=== PATIENT | female | born 1985 | race Caucasian/White ===

== ENCOUNTER 2021-12-18 16:56 | Observation (INO) | payer OTHER ==
[~2021-12-18 16:56] MED LIST: Iopamidol 300 61% 100 ML VIAL FS ONE
[2021-12-18] MEDS ORDERED: Metoclopramide HCl 10 MG/2 ML VIAL ONE (17:28)
[2021-12-18] MEDS ORDERED: Famotidine/PF 20 mg/2ml Vial ONE (17:29)
[2021-12-18] MEDS ORDERED: Morphine 2 MG/ML VIAL ONE (17:30)
[2021-12-18] MEDS ORDERED: Morphine 4 MG/ML VIAL ONE ×2 (17:30→21:27)
[2021-12-18 17:54] LABS: #Eosinphils 0.2 10x3/uL (0.0-0.5); #Monocytes 0.6 10x3/uL (0.0-1.1); #Neutrophils 4.8 10x3/uL (1.5-8.4); %Basophils 0.3 % (0.0-2.0); %Eosinophils 2.5 % (0.0-6.0); %Lymphocytes 17.8 % (18.0-47.0); %Monocytes 8.5 % (0.0-10.0); %Neutrophils 69.4 % (40.0-75.0); Hemoglobin 10.6 g/dL (12.0-15.5); Mean Corpuscular HGB CONC 35.2 g/dL (32.0-36.0); Mean Corpuscular Hemoglobin 29.1 pg (27.0-33.0); Mean Corpuscular Volume 82.7 fl (81.6-98.3); Mean Platelet Volume 9.6 fl (7.4-10.4); Platelet Count 297 10x3/uL (150-450); RBC Distribution Width 11.9 % (11.5-14.5); Red Blood Cell (RBC) Count 3.64 10x6/uL (3.90-5.03); White Blood Cell (WBC) Count 6.9 10x3/uL (3.5-10.5)
[2021-12-18 18:10] LABS: ALT (SGPT) 167 U/L (8-55); AST (SGOT) 66 U/L (5-34); Albumin 4.1 g/dL (3.5-5.0); Alkaline Phosphatase 95 U/L (40-110); Anion Gap 11 mmol/L (10-20); BUN (Urea Nitrogen) 8 mg/dL (7.0-18.7); Bilirubin, Total 1.6 mg/dL (0.2-1.2); Calc. Creatinine Clearance 0 mL/min (70-130); Calcium 9.3 mg/dL (7.8-10.44); Carbon Dioxide 24 mmol/L (22-29); Chloride 104 mmol/L (98-107); Estimated GFR 106; Globulin 3.1 g/dL (2.4-3.5); Glucose 89 mg/dL (70-105); Lipase 40 U/L (8-78); Magnesium 1.7 mg/dL (1.6-2.6); Potassium 4.3 mmol/L (3.5-5.1); Protein, Total 7.2 g/dL (6.0-8.3); Sodium 135 mmol/L (136-145)
[2021-12-19 01:20] VITALS: BMI 43.2
[2021-12-19] MEDS ORDERED: Morphine 4 MG/ML VIAL SLOW IVP PRN (01:26)
[2021-12-19] MEDS ORDERED: Acetaminophen 325 MG TAB PO PRN (01:30)
[2021-12-19] MEDS ORDERED: Ondansetron PF 4 MG/2 ML Vial IVP PRN (01:30)
[2021-12-19] MEDS ORDERED: Ondansetron ODT 4 MG TAB SL PRN (01:30)
[2021-12-19] MEDS: Sodium Chloride 0.9% 1,000 ML IV SCH ×2 (01:48→13:44)
[2021-12-19] MEDS ORDERED: Piperacillin/Tazobactam 3.375 GM in Sodium Chloride 0.9% 100 ML IVPB SCH (02:00)
[2021-12-19 03:52] LABS: SARS-CoV-2 NAA Rapid Test Not Detected (NotDetected)
[2021-12-19] MEDS ORDERED: Bupivacaine 0.25% HCL 30 ML VIAL ONE (07:07)
[2021-12-19] MEDS ORDERED: EPINEPHrine 1 MG/ML AMP ONE (07:08)
[2021-12-19] MEDS ORDERED: Rocuronium Bromide 10 MG/ML (10ML VIAL) ONE (07:28)
[2021-12-19] MEDS ORDERED: Ondansetron PF 4 MG/2 ML Vial ONE ×3 (07:28→10:01)
[2021-12-19] MEDS ORDERED: PROPOFOL 20 ML ONE (07:28)
[2021-12-19] MEDS ORDERED: Lidocaine 1% PF 5 ML VIAL ONE (07:28)
[2021-12-19] MEDS ORDERED: Fentanyl 250 MCG/5 ML VIAL ONE (07:28)
[2021-12-19] MEDS ORDERED: Dexamethasone 4 mg/ml Vial ONE (07:28)
[2021-12-19] MEDS ORDERED: Midazolam HCl 2 mg/2 ml Vial ONE (08:08)
[2021-12-19] MEDS ORDERED: Metoclopramide HCl 10 MG/2 ML VIAL ONE (08:29)
[2021-12-19] MEDS ORDERED: SUGAMMADEX SODIUM 200 MG/2 ML VIAL ONE ×2 (09:21→09:47)
[2021-12-19] MEDS ORDERED: Fentanyl 100 MCG/2 ML VIAL ONE ×2 (09:30→10:25)
[2021-12-19] MEDS ORDERED: Ketorolac Tromethamine 30 MG/ML VIAL ONE (09:46)
[2021-12-19] MEDS ORDERED: Meperidine HCl/PF 25 MG/ML VIAL ONE (09:56)
[2021-12-19] MEDS ORDERED: Hydrocodone-Acetamin 15 ML UDCUP PO PRN ×2 (11:18→11:19)
[2021-12-19] MEDS: Hydrocodone-Acetamin 15 ML UDCUP PO PRN ×2 (12:57→18:01)
[2021-12-19] MEDS ORDERED: Morphine 2 MG/ML VIAL SLOW IVP PRN (14:52)
[2021-12-19] MEDS: Ondansetron PF 4 MG/2 ML Vial IVP PRN ×2 (14:59→20:30)
[2021-12-19] MEDS ORDERED: Ketorolac Tromethamine 30 MG/ML VIAL IVP SCH (16:00)
[2021-12-19] MEDS: Ketorolac Tromethamine 30 MG/ML VIAL IVP SCH ×2 (17:00→22:11)
[2021-12-19] MEDS ORDERED: Famotidine/PF 20 mg/2ml Vial IVPB SCH (18:15)
[2021-12-19] MEDS ORDERED: Famotidine/PF 20 mg/2ml Vial SLOW IVP SCH (18:30)
[2021-12-19] MEDS: Famotidine/PF 20 mg/2ml Vial SLOW IVP SCH (20:32)
[2021-12-19] MEDS: Morphine 4 MG/ML VIAL SLOW IVP PRN (20:39)
[2021-12-19] MEDS ORDERED: Lactated Ringer's 1,000 ML IV SCH (23:15)
[2021-12-20] MEDS: Ketorolac Tromethamine 30 MG/ML VIAL IVP SCH ×2 (03:58→09:45)
[2021-12-20] MEDS: Ondansetron PF 4 MG/2 ML Vial IVP PRN ×2 (04:10→09:46)
[2021-12-20] MEDS: Morphine 4 MG/ML VIAL SLOW IVP PRN (04:11)
[2021-12-20 04:44] LABS: #Eosinphils 0.2 10x3/uL (0.0-0.5); #Monocytes 0.5 10x3/uL (0.0-1.1); #Neutrophils 4.4 10x3/uL (1.5-8.4); %Basophils 0.4 % (0.0-2.0); %Eosinophils 2.2 % (0.0-6.0); %Lymphocytes 25.1 % (18.0-47.0); %Monocytes 7.6 % (0.0-10.0); %Neutrophils 63.4 % (40.0-75.0); Hemoglobin 10.2 g/dL (12.0-15.5); Mean Corpuscular HGB CONC 34.9 g/dL (32.0-36.0); Mean Corpuscular Hemoglobin 28.7 pg (27.0-33.0); Mean Platelet Volume 9.4 fl (7.4-10.4); Platelet Count 262 10x3/uL (150-450); Red Blood Cell (RBC) Count 3.56 10x6/uL (3.90-5.03); White Blood Cell (WBC) Count 6.9 10x3/uL (3.5-10.5)
[2021-12-20 05:09] LABS: ALT (SGPT) 194 U/L (8-55); AST (SGOT) 93 U/L (5-34); Albumin 3.7 g/dL (3.5-5.0); Alkaline Phosphatase 99 U/L (40-110); Anion Gap 14 mmol/L (10-20); BUN (Urea Nitrogen) 7 mg/dL (7.0-18.7); Bilirubin, Total 1.3 mg/dL (0.2-1.2); Calc. Creatinine Clearance 230 mL/min (70-130); Carbon Dioxide 22 mmol/L (22-29); Chloride 103 mmol/L (98-107); Estimated GFR 106; Globulin 2.8 g/dL (2.4-3.5); Glucose 89 mg/dL (70-105); Potassium 3.6 mmol/L (3.5-5.1); Protein, Total 6.5 g/dL (6.0-8.3); Sodium 135 mmol/L (136-145)
[2021-12-20] MEDS: Famotidine/PF 20 mg/2ml Vial SLOW IVP SCH (08:56)
[2021-12-20 11:41] VITALS: BP 124/68; TEMP 97.7
== END 2021-12-20 16:06 | disposition home or self-care (01) ==
LOC: CSHERS 16:56 → CSHTELE 20:55 → UNDOADMOB 12-19 01:17
PROVIDERS: ADMIT Specialist; ATTEND Specialist
PROC: 0FT44ZZ Resection of Gallbladder, Percutaneous Endoscopic Approach (ICD-10-PCS; principal; 2021-12-19)
DX: K81.1 Chronic cholecystitis (principal); K82.8 Other specified diseases of gallbladder; K76.0 Fatty (change of) liver, not elsewhere classified; E03.9 Hypothyroidism, unspecified; E66.01 Morbid (severe) obesity due to excess calories; Z68.41 Body mass index [BMI] 40.0-44.9, adult; Z79.890 Hormone replacement therapy; Z79.899 Other long term (current) drug therapy; Z88.5 Allergy status to narcotic agent; Z98.84 Bariatric surgery status; Z20.822 Contact with and (suspected) exposure to COVID-19
CPT/HCPCS: 36415; 74177; 76705; 80053; 83605; 83690; 83735; 85025; 88304; 94760; 96374; 96375; 96376; C1713; G0378; J0171; J1100; J1885; J2175; J2250; J2270; J2405; J2543; J2704; J2765; J3010; J3490; J7050; J7120; Q9967; S0020; S0028; U0002

== ENCOUNTER 2021-12-21 13:39 | Emergency (ER) | payer OTHER ==
[2021-12-21 14:34] LABS: Bilirubin 3+ (Negative); Blood, Urine 150 (Negative); Clarity Clear (Clear); Glucose, Urine (Dipstick) Normal (Negative); Ketone, Urine 150 mg/dL (Negative); Leukocyte 25 (Negative); Nitrite Negative (Negative); Protein, Urine (Dipstick) 100 mg/dl (Neg-Trace)
[2021-12-21] MEDS ORDERED: Ondansetron PF 4 MG/2 ML Vial ONE ×2 (14:40→20:20)
[2021-12-21] MEDS ORDERED: Morphine 4 MG/ML VIAL ONE ×3 (14:40→20:20)
[2021-12-21 14:45] LABS: Bacteria/HPF 1+ HPF (None Seen); Mucous/LPF 2+ LPF (<2+)
[2021-12-21 14:47] LABS: #Eosinphils 0.3 10x3/uL (0.0-0.5); #Monocytes 0.8 10x3/uL (0.0-1.1); #Neutrophils 9.3 10x3/uL (1.5-8.4); %Basophils 0.3 % (0.0-2.0); %Eosinophils 2.3 % (0.0-6.0); %Lymphocytes 12.5 % (18.0-47.0); %Monocytes 6.9 % (0.0-10.0); %Neutrophils 76.8 % (40.0-75.0); Hemoglobin 11.9 g/dL (12.0-15.5); Mean Corpuscular HGB CONC 34.9 g/dL (32.0-36.0); Mean Corpuscular Hemoglobin 28.7 pg (27.0-33.0); Mean Corpuscular Volume 82.4 fl (81.6-98.3); Mean Platelet Volume 9.4 fl (7.4-10.4); Platelet Count 418 10x3/uL (150-450); Red Blood Cell (RBC) Count 4.14 10x6/uL (3.90-5.03); White Blood Cell (WBC) Count 12.2 10x3/uL (3.5-10.5)
[2021-12-21 15:04] LABS: PTT 25.7 sec (22.0-33.0); Prothrombin Time 11.2 sec (9.5-12.1)
[2021-12-21 15:23] LABS: ALT (SGPT) 239 U/L (8-55); AST (SGOT) 76 U/L (5-34); Albumin 4.6 g/dL (3.5-5.0); Alkaline Phosphatase 117 U/L (40-110); Anion Gap 16 mmol/L (10-20); BUN (Urea Nitrogen) 8 mg/dL (7.0-18.7); Bilirubin, Total 1.6 mg/dL (0.2-1.2); Calc. Creatinine Clearance 0 mL/min (70-130); Calcium 10.2 mg/dL (7.8-10.44); Carbon Dioxide 23 mmol/L (22-29); Chloride 101 mmol/L (98-107); Estimated GFR 95; Globulin 3.6 g/dL (2.4-3.5); Glucose 103 mg/dL (70-105); Potassium 3.4 mmol/L (3.5-5.1); Protein, Total 8.2 g/dL (6.0-8.3); Sodium 137 mmol/L (136-145)
[2021-12-21] MEDS ORDERED: Thiamine HCl 200 MG/2 ML VIAL ONE ×2 (16:46→16:53)
== END 2021-12-21 21:49 | disposition short-term general hospital (02) ==
LOC: CSHERS 13:39
DX: G89.18 Other acute postprocedural pain (principal); R10.10 Upper abdominal pain, unspecified; R11.2 Nausea with vomiting, unspecified; Z90.49 Acquired absence of other specified parts of digestive tract
CPT/HCPCS: 36415; 74177; 80053; 81003; 81015; 83605; 85025; 85610; 85730; 87040; 87077; 87086; 96361; 96365; 96366; 96375; 96376; J2270; J2405; J3411; Q9967

== ENCOUNTER 2024-03-21 09:48 | Emergency (ER) | payer OTHER ==
[2024-03-21 10:47] LABS: Bilirubin Neg (Negative); Blood, Urine 50 (Negative); Clarity Clear (Clear); Glucose, Urine (Dipstick) Normal (Negative); Ketone, Urine 15 mg/dL (Negative); Leukocyte Negative (Negative); Nitrite Negative (Negative); Protein, Urine (Dipstick) Negative (Neg-Trace); Urobilinogen Normal mg/dL (Less than 2)
[2024-03-21 10:55] LABS: Amphetamine Not Detected (NotDetected); Barbiturates Screen Not Detected (NotDetected); Benzodiazepine Screen Not Detected (NotDetected); Cocaine Metabolite Screen Not Detected (NotDetected); Methadone Not Detected (NotDetected); Methamphetamine Not Detected (NotDetected); Opiate Screen Not Detected (NotDetected); Oxycodone Screen Not Detected (NotDetected); Phencyclidine (PCP) Not Detected (NotDetected); THC/Cannabinoid Screen Detected (NotDetected); Tricyclic Screen Not Detected (NotDetected)
[2024-03-21 10:58] LABS: #Basophils 0.04 10x3/uL (0.0-0.2); #Eosinophils 0.07 10x3/uL (0.0-0.5); #Monocytes 0.45 10x3/uL (0.0-1.1); #Neutrophils 4.55 10x3/uL (1.5-8.4); %Basophils 0.6 % (0.0-2.0); %Lymphocytes 23.7 % (18.0-47.0); %Monocytes 6.7 % (0.0-10.0); %Neutrophils 67.6 % (40.0-75.0); Hematocrit 38.2 % (34.9-44.5); Mean Corpuscular Volume 85.1 fL (81.6-98.3); Mean Platelet Volume 9.5 fL (7.4-10.4); Platelet Count 238 10x3/uL (150-450); RBC Distribution Width 12.5 % (11.5-14.5); Red Blood Cell (RBC) Count 4.49 10x6/uL (3.90-5.03); White Blood Cell (WBC) Count 6.7 10x3/uL (3.5-10.5)
[2024-03-21 11:08] LABS: BHCG - Serum Negative (NEGATIVE); Pregs Control Background? CLEAR/WHITE (CLR/WHITE); Pregs Control Bar Appear? YES (CONTROL BAR)
[2024-03-21 11:15] LABS: Acetaminophen Less than 10 mcg/mL (Less than 10); Alcohol Less than 10.0 mg/dL (Less than 10); Salicylate Less than 8.0 mg/dL (Less than 8.0)
[2024-03-21 11:17] LABS: ALT (SGPT) 21 U/L (8-55); AST (SGOT) 25 U/L (5-34); Albumin 4.3 g/dL (3.5-5.0); Alkaline Phosphatase 52 U/L (40-110); Anion Gap 12 mmol/L (10-20); BUN (Urea Nitrogen) 12 mg/dL (7.0-18.7); Bilirubin, Total 0.8 mg/dL (0.2-1.2); CK (CPK) 166 U/L (29-168); Calc. Creatinine Clearance 0 mL/min (70-130); Calcium 9.3 mg/dL (7.8-10.44); Carbon Dioxide 24 mmol/L (22-29); Chloride 104 mmol/L (98-107); Estimated GFR 94; Glucose 96 mg/dL (70-105); Potassium 3.9 mmol/L (3.5-5.1); Protein, Total 7.3 g/dL (6.0-8.3); Sodium 136 mmol/L (136-145)
[2024-03-21 11:26] LABS: Bacteria/HPF 1+ HPF (None Seen); CAUTI Indications for Culture Pelvic or flank pain; Squamous Epithelial 21-50 HPF (0-3); WBC/HPF 0-3 HPF (0-3)
[2024-03-21 11:27] LABS: Urine Culture Reflex No No
== END 2024-03-21 14:27 | disposition home or self-care (01) ==
LOC: CSHERS 09:48
DX: R45.851 Suicidal ideations (principal); F41.9 Anxiety disorder, unspecified; Z79.899 Other long term (current) drug therapy
CPT/HCPCS: 36415; 80053; 80306; 80307; 81001; 82550; 84443; 84703; 85025; 93005